=== PATIENT | male | born 1990 | race Hispanic/Latino ===

== ENCOUNTER 2017-10-26 08:44 | Emergency (ER) | payer OTHER ==
[2017-10-26 08:49] VITALS: BP 128/83; PULSE 63; RESP 18; TEMP 97.4
[2017-10-26 08:50] VITALS: BMI 22.4
[2017-10-26] MEDS ORDERED: Tdap Vaccine 0.5 ml Vial (10-64 yrs) IM ONE ×2 (09:01→09:48)
--- NOTE | 2017-10-26 09:08 | ED PDOC ---
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 Denies LOC. C/o L jaw pain, bleeding laceration under chin, and mild L tinnitus. Denies hearing loss, headache, nausea/vomiting, change vision or weakness. States felt his jaw pop/move after fall but denies current misalignment or difficulty swallowing or speaking. Denies neck pain or any symptoms below the neck. Last Td unknown. PMD unknown Past Medical History Reviewed: Historical Data, Nursing Documentation, Vital Signs Vital Signs: Last Vital Signs Temp 97.4 F L 10/26/17 08:49 Pulse 63 10/26/17 08:49 Resp 18 10/26/17 08:49 BP 128/83 10/26/17 08:49 Pulse Ox 97 10/26/17 08:49 - Medical History PMH: No Chronic Diseases - Surgical History Surgical History: No Surg Hx - Family History Family History: States: Unknown Family Hx - Living Arrangements Living Arrangements: With Family - Social History Current smoker - smoking cessation education provided: No - Home Medications Home Medications: Ambulatory Orders Medication Instructions Recorded Naproxen [Naprosyn] 500 mg PO BID PRN #14 tablet 10/26/17 - Allergies Allergies/Adverse Reactions: Allergies Allergy/AdvReac Type Severity Reaction Status Date / Time No Known Allergies Allergy Verified 10/26/17 09:25 Review of Systems Constitutional: Negative for: Weakness Eyes: Negative for: Vision Change ENT: Positive for: Mouth Pain, Other (jaw pain). Negative for: Ear Pain, Ear Discharge, Nose Pain, Nose Discharge, Nose Congestion, Throat Pain Cardiovascular: Negative for: Chest Pain Respiratory: Negative for: Cough Gastrointestinal: Negative for: Nausea, Abdominal Pain Musculoskeletal: Negative for: Neck Pain, Arm Pain, Back Pain, Hand Pain Skin: Negative for: Rash, Lesions Neurological: Negative for: Weakness, Seizures, Dizziness Physical Exam - Reviewed Nursing Documentation Reviewed: Yes Vital Signs Reviewed: Yes - Physical Exam Appears: Positive for: Well Head Exam: Negative for: ATRAUMATIC (+submental 3cm laceration, tenderness L TMJ /angle jaw) Skin: Positive for: Normal Color, Warm Eye Exam: Positive for: EOMI. Negative for: Periorbital swelling, Periorbital tenderness ENT: Positive for: TM Is/Are (intact no hemotympanum), Other (neg dental trauma ; 2.5cm laceration linear submental chin, minimal bleeding; mild L mandible tenderness, no TMJ deformity). Negative for: Tonsillar Exudate, Tonsillar Swelling Cardiovascular/Chest: Negative for: Tachycardia Respiratory: Negative for: Respiratory Distress Gastrointestinal/Abdominal: Negative for: Tenderness Extremity: Positive for: Other (R dorsal hand tenderness). Negative for: Deformity Neurologic/Psych: Positive for: Alert, vehicle sales professional II-XII, Oriented. Negative for: Motor/Sensory Deficits, Facial Droop - ECG O2 Sat by Pulse Oximetry: 97 Medical Decision Making Medical Decision Making: max/facial CT ordered r/o occult jaw fx hand / wrist XR R UE Adacel ordered Motrin ordered for pain Laceration repair planned Procedure note laceration repair curvilinear 3cm lac to submental chin, simple complexity anesthetized w 5ml lidocaine 1% irrigated 200ml sterile saline 5-0 nylon used for 7 interrupted sutures w good wound margin approximation tolerated well bacitracin applied mother is a coffee weigher and states will take sutures out and wound care explained Radiology report reviewed w patient/mother re: possible R triquetral fracture Volar splint applied R hand, confirmed placement by MD Followup ortho/hand surgery Rx naprosyn CD copies of XRays provided Disposition - Clinical Impression Clinical Impression: Injury of jaw, Facial laceration, Hand fracture, right - Patient ED Disposition Is Patient to be Admitted: No Counseled Patient/Family Regarding: Studies Performed, Diagnosis, Need For Followup, Rx Given - Disposition Referrals: Abraham Polanco III, MD [Staff Provider] - Kathia Dennis DMD [Staff Provider] - Agatha Salas MD [Staff Provider] - Disposition: Routine/Home Disposition Time: 12:01 Condition: STABLE Additional Instructions: Sutures out in 5-6 days. Use bacitracin 2x daily for 5 days. Keep wound clean and dry. See OMFS specialist for jaw pain. Its possible you have an injury to the jaw which will require other testing or intervention. See hand specialist for possible R triquetral fracture. Wear splint. Prescriptions: Naproxen [Naprosyn] 500 mg PO BID PRN #14 tablet PRN Reason: Pain, Moderate (4-7) Instructions: Temporomandibular Joint (TMJ) Disorders, Wrist Sprain (DC), Hand Fracture, Laceration Repair With Stitches (DC), Dental Specialists Forms: [employer] (Kinyarwanda)
--- NOTE | 2017-10-26 09:48 | RAD ---
PROCEDURE: Right Wrist Radiographs. HISTORY: fall R wrist pain COMPARISON: None. FINDINGS: BONES: There is mottled lucency over the dorsal carpal bone-a triquetrum nondisplaced fracture here is a consideration. JOINTS: Normal. No dislocation. SOFT TISSUES: Possible mild soft tissue swelling OTHER FINDINGS: None. IMPRESSION: Probable triquetrum dorsal nondisplaced fracture. Clinical correlation with physical exam is needed. Please note: No preliminary interpretation of this examination rendered by emergency department personnel
--- NOTE | 2017-10-26 09:52 | RAD ---
PROCEDURE: Right Hand Radiographs. HISTORY: fall R hand pain COMPARISON: None. FINDINGS: BONES: There is mottled lucency over the dorsal carpal bone-a triquetral nondisplaced fracture here is a consideration. JOINTS: Normal. No osteoarthritic changes. SOFT TISSUES: Normal. OTHER FINDINGS: None. IMPRESSION: Probable triquetrum dorsal nondisplaced fracture. Clinical correlation with physical exam is needed. Please note: No preliminary interpretation of this examination rendered by emergency department personnel
--- NOTE | 2017-10-26 10:27 | CT ---
PROCEDURE: CT MAXILLOFACIAL BONES WITHOUT CONTRAST HISTORY: mandible/maxilla facial trauma COMPARISON: None TECHNIQUE: Contiguous axial CT images of the maxillofacial bones were obtained. Coronal and sagittal reformats were generated. Radiation dose: Total exam DLP = 774 mGy-cm. This CT exam was performed using one or more of the following dose reduction techniques: Automated exposure control, adjustment of the mA and/or kV according to patient size, and/or use of iterative reconstruction technique. FINDINGS: NASAL BONES: Intact ORBITS: In the medial right supra orbital region, facial superficial soft tissue swelling is present. The orbits and retrobulbar structures appear intact. PARANASAL SINUSES/ MASTOIDS: Clear. MAXILLA: Unremarkable. MANDIBLE/ TEMPOROMANDIBULAR JOINTS: Unremarkable. SKULL BASE: Unremarkable. TEMPORAL BONES: Middle ears and mastoid grossly unremarkable. OTHER FINDINGS: None. IMPRESSION: Medial right supra orbital facial soft tissue swelling. The orbits and retrobulbar structures appear normal. No facial fractures noted.
[2017-10-26] MEDS ORDERED: Lidocaine 1% Inj (20ml) IJ ONE (11:27)
[2017-10-26] MEDS ORDERED: Lidocaine 1% Inj (20ml) ONE (11:32)
[2017-10-27 13:25] VITALS: O2SAT 97
== END 2017-10-26 13:39 | disposition home or self-care (01) ==
LOC: H.ER 08:44
DX: S09.93XA Unspecified injury of face, initial encounter (principal); S01.81XA Laceration without foreign body of other part of head, initial encounter; S62.91XA Unspecified fracture of right hand, initial encounter for closed fracture; W18.30XA Fall on same level, unspecified, initial encounter